=== PATIENT | female | born 1950 | race Caucasian/White ===

== ENCOUNTER 2019-02-25 16:28 | Observation (INO) ==
[2019-02-25] MEDS ORDERED: ASPIRIN PO ONE (16:46)
[2019-02-25 17:04] LABS: BASO# 0.01 X1000 (0.0-0.2); BASO% 0.2 % (0.0-0.8); EOS# 0.05 X1000 (0.0-0.7); EOS% 0.9 % (0.0-10.0); HEMATOCRIT 42.8 % (37.0-47.0); HEMOGLOBIN 13.9 g/dL (12.0-16.0); LYMPH# 2.35 X1000 (1.2-3.4); LYMPH% 41.6 % (20.5-51.1); MCH 29.1 PG (27-31); MCHC 32.5 g/dL (33-37); MCV 89.7 FL (81-99); MONO# 0.46 X1000 (0.11-0.59); MONO% 8.1 % (1.7-9.3); MPV 11.4 FL (7.4-10.4); NEUT# 2.78 X1000 (1.4-6.5); NEUT% 49.2 % (42.2-75.2); PLT 212 X1000 (130-400); RBC 4.77 XMIL (4.2-5.4); RDW 13.3 % (11.5-14.5); WBC 5.65 X1000 (4.8-10.8)
[2019-02-25 17:22] LABS: ALB/GLOB RATIO 1.5; ALBUMIN 4.5 g/dL (3.5-5.0); CALCIUM 9.2 mg/dL (8.8-10.2); POTASSIUM 3.6 mmol/L (3.5-5.1); TOTAL BILIRUBIN 0.37 mg/dL (0.20-1.00); TOTAL PROTEIN 7.6 g/dL (6.3-8.3)
--- NOTE | 2019-02-25 17:31 | PROVIDER DOCUMENTATION ---
HPI-General Adult - General Chief Complaint: Epigastric Pain Stated Complaint: CP HEART PT Time Seen by Provider: 02/25/19 17:10 Source: patient Allergies/Adverse Reactions: Patient Allergies Allergy/AdvReac Type Severity Reaction Status Date / Time esomeprazole magnesium * Allergy Intermediate DIARRHEA Verified 02/25/19 16:45 [From Nexium] omeprazole Allergy DIARRHEA Verified 02/25/19 16:45 Home Medications: Home Medication List Medication Instructions Recorded Confirmed Last Taken Type Levothyroxine [Synthroid] 75 microgm PO DAILY 02/20/12 08/11/18 01/27/18 08:00 History Rosuvastatin Calcium [Crestor] 10 mg PO HS 07/03/15 08/11/18 01/27/18 21:00 History Amlodipine [Norvasc] 5 mg PO QHS 11/23/17 08/11/18 01/28/18 06:00 History Aspirin [Aspir-Low] 81 mg PO HS 11/23/17 08/11/18 01/22/18 History Carbamazepine [Epitol] 100 mg PO HS 11/23/17 08/11/18 01/27/18 21:00 History Carvedilol [Coreg] 6.25 mg PO BID 11/23/17 08/11/18 01/28/18 06:00 History [place]-3 Fatty Acids/Fish Oil [Fish 1,200 mg PO DAILY 11/23/17 08/11/18 01/27/18 08:00 History Oil 1,000 mg Capsule] Potassium Chloride [Klor-Con 8] 1 tab PO BID 11/23/17 08/11/18 01/27/18 21:00 History Ranitidine [Zantac] 150 mg PO BID #120 tab 01/28/18 08/11/18 Unknown Rx Glipizide [Glucotrol] 5 mg PO DAILY #30 tab 08/14/18 Unknown Rx Amlodipine [Norvasc] 10 mg PO DAILY #30 tab 10/15/18 Unknown Rx - History of Present Illness -Gen Adult Nature of Presenting Problems: 68 yo female who presents with CC of chest pain and shortness of breath. The onset was this afternoon and was sudden. The description is a tightness and pressure which starts substernally and radiates to the right. The pain is not improved with rest. The patient reports that the patient is similar to her previous MS. The patient denies fever or abdominal pain. The patient reports that the pain is worse with breathing. The patient denies nausea or sweats. Review of Systems - Adult - REVIEW OF SYSTEMS - ADULT Constitutional: denies: fever Eyes: reports: no symptoms reported. denies: eye pain Ears, Nose, Mouth & Throat: reports: no symptoms reported. denies: throat pain Cardiovascular: reports: chest pain, edema Respiratory: reports: shortness of breath Gastrointestinal: reports: no symptoms reported. denies: abdominal pain, diarrhea, nausea, vomiting Genitourinary: reports: no symptoms reported. denies: flank pain Musculoskeletal: reports: back pain Integumentary: reports: no symptoms reported. denies: rash Neurological: reports: no symptoms reported. denies: headache/migraines Psychiatric: reports: no symptoms reported Endocrine: reports: no symptoms reported Hematologic/Lymphatic: reports: no symptoms reported, other (no bleeding) Allergic/Immunologic: reports: no symptoms reported Past History - Adult - PAST MEDICAL HISTORY-ADULT Review of Records: reports: Nursing Assessment Review Major Childhood Illnesses: reports: denies history Cardiovascular: reports: CAD, CHF, HTN, hyperlipidemia Respiratory: reports: asthma Gastrointestinal: reports: denies history Obstetrical/Gynecological: reports: other (cervical cancer) Genitourinary: reports: denies history Musculoskeletal: reports: denies history Neurological: reports: Seizures/Epilepsy Psychiatric: reports: denies history Endocrine/Immune: reports: Diabetes, thyroid disorder (hypo) Other Conditions: reports: denies history - PRIOR SURGERIES/PROCEDURES Surgical/Procedure History: reports: cholecystectomy, cardiac stent (2006), hysterectomy, tonsillectomy, other (breast biopsy; skin cancer removal) - IMMUNIZATION STATUS Childhood Immunizations: UTD Flu Vaccine: See Nurse Assessment - FAMILY HISTORY Family History: other (CAD in brother) - SOCIAL HISTORY Smoking: denies Substance Use: none/never Alcohol Use Frequency: never Physical Exam-General - PHYSICAL EXAM-ADULT Initial Vital Signs Reviewed: Yes - CONSTITUTIONAL General Appearance: appears well, alert, no apparent distress - EYES Eyes: negative: conjuctival exudate, photophobia, scleral icterus - HEAD, EARS, NOSE, MOUTH & THROAT HENMT: normocephalic/atraumatic, moist mucous membranes - RESPIRATORY Respiratory: lungs clear, normal breath sounds, no respiratory distress - CARDIOVASCULAR Cardiovascular: regular rate, rhythm, other (1+ RLE and 2+LLE) - GASTROINTESTINAL (ABDOMEN) Abdominal Exam: non tender, soft. negative: Grewal's sign - MUSCULOSKELETAL Back Exam: normal inspection Extremity: tenderness (mild bilateral LE tenderness) - SKIN Integumentary: normal color. negative: zoster-like rash - NEUROLOGIC Neurologic: grossly normal - PSYCHIATRIC Psych/Mental Status: normal mood/affect, normal thought content, normal thought process Progress - PLAN OF CARE/RESULTS Progress/Plan/Lab Results: Vital Signs - 8 hr 02/25/19 16:42 Temperature 98.6 F Pulse Rate 60 Respiratory Rate 20 Blood Pressure 159/67 O2 Sat by Pulse Oximetry 98 Laboratory Results - last 24 hr 02/25/19 02/25/19 02/25/19 16:41 16:41 16:41 WBC 5.65 RBC 4.77 Hgb 13.9 Hct 42.8 MCV 89.7 MCH 29.1 MCHC 32.5 L RDW Std Deviation 13.3 Plt Count 212 MPV 11.4 H Immature Gran % (Auto) 0.0 Neut % (Auto) 49.2 Lymph % (Auto) 41.6 [place] % (Auto) 8.1 Eos % (Auto) 0.9 Baso % (Auto) 0.2 Immature Gran # (Auto) 0.00 Neut # (Auto) 2.78 Lymph # (Auto) 2.35 [place] # (Auto) 0.46 Eos # (Auto) 0.05 Baso # (Auto) 0.01 Sodium 142 Potassium 3.6 Chloride 104 Carbon Dioxide 25 Anion Gap 13 BUN 20 Creatinine 1.0 H Estimated GFR/1.73 m2 55 BUN/Creatinine Ratio 20 Glucose 127 H Calculated Osmolality 287 Calcium 9.2 Total Bilirubin 0.37 AST 19 ALT 21 Alkaline Phosphatase 71 Creatine Kinase 142 Troponin T < 0.010 Total Protein 7.6 Albumin 4.5 Globulin 3.1 Albumin/Globulin Ratio 1.5 Orders Category Date Time Status Cardiac Monitoring DIRECTED Care 02/25/19 16:46 Active Oxygen Therapy- ED Nursing DIRECTED Care 02/25/19 16:46 Active Saline Loc NOW Care 02/25/19 16:46 Active CHEST-2 VIEWS [RAD] Stat Exams 02/25/19 16:46 Taken CBC WITH ELECTRONIC DIFF [HEME] Stat Lab 02/25/19 16:41 Completed CK PROFILE [SP CHEM] Stat Lab 02/25/19 16:41 Completed COMPREHENSIVE METABOLIC PANEL [CHEM] Stat Lab 02/25/19 16:41 Completed D-DIMER [COAG] Stat Lab 02/25/19 17:27 Ordered PRO B-NATRIURETIC PEPTIDE Stat Lab 02/25/19 16:41 Received PROTIME WITH INR [COAG] Stat Lab 02/25/19 16:41 Received PTT [COAG] Stat Lab 02/25/19 16:41 Received TROPONIN T Stat Lab 02/25/19 16:41 Completed Aspirin Med 02/25/19 16:46 Discontinued 325 mg PO NOW ONE CP/SOB/Palp >45 yrs of Age Stat Oth 02/25/19 16:46 Ordered EKG [EKG] Stat Ther 02/25/19 16:46 Ordered Result Diagrams: 02/25/19 16:41 02/25/19 16:41 - REASSESSMENT Reassessment #1 Status: other (Troponin negative. Given patient hx of cardiac stent and HTN, HLD, and DM, with heart score of 6, will plan on admission for observation and [facility] stress testing. Discussed with the hospitalist who has accepted the patei nt.) - EKG 1 EKG Interpretation (*Must complete 3 of following elements*): Abnormal Rate: 62 Rhythm: sinus [place]: normal QRS: normal AR Interval: normal ST Wave: non-specific ST changes Departure - Departure Date of Disposition Decision: 02/25/19 Time of Disposition Decision: 19:19 DIAGNOSIS: Chest pain Qualifiers: Chest pain type: unspecified Qualified Code(s): R07.9 - Chest pain, unspecified Disposition: ADMITTED INPATIENT 09 Certified Medical Emergency: Emergent Condition: Fair Referrals and Follow-Ups: Endy Ham MD [Primary Care Provider] - - Critical Care Note This patient required my direct & personal management of CC.: No Attestation - Physician/ LUPE Attestation Patient care was provided by Advanced Practice Provider:: No The physician spent face to face time with patient:: Yes Advanced Practice Provider documentation review:: Supervising physician onsite and consulted in the evaluation and care of this patient. The physician did have a face to face encounter with the patient. - HEART Score HEART Score: History: Moderately Suspicious HEART Score: ECG: Non-Specific Repolarization Disturbance/LBBB/PM HEART Score: Age: > or = 65 Years HEART Score: Risk Factors for Atherosclerotic Disease: > or = 3 Risk Factors or History of Atherosclerotic Disease HEART Score: Troponin: < or = Normal Limit Total HEART Score:: 6
--- NOTE | 2019-02-25 17:34 | Diag Imaging Result Doc PS360 ---
EXAM: CHEST-2 VIEWS 02/25/2019 HISTORY: CP/SOB TECHNIQUE: PA and lateral chest COMMENT: The appearance the chest has not changed significantly since 08/09/2018. IMPRESSION: No acute disease. Electronically signed by Carlos Swenson 02/25/2019 5:32 PM
[2019-02-25 17:37] LABS: INR 1.1; PROTIME 14.4 Seconds (11.0-16.0)
[2019-02-25] MEDS ORDERED: NITROGLYCERIN TOP ONE (17:37)
[2019-02-25 17:38] LABS: PTT 33.7 Seconds (22.3-41.8)
--- NOTE | 2019-02-25 22:42 | HISTORY AND PHYSICAL ---
PRIMARY CARE PROVIDER: Antionette Minor. CHIEF COMPLAINT: Chest pain. HISTORY OF PRESENTING ILLNESS: A 68-year-old female with a history of diabetes mellitus type 2, coronary disease, hypertension, hyperlipidemia, who presented to the emergency department with a 1- day history of having substernal chest pain. She described it as pressure-like and an ache. She states that she was not getting any relief. She was evaluated in the emergency department and due to her presenting symptoms, she will require admission for further management. The patient was given some nitropaste. She states that it did help relieve some of her pain. At the time of my examination, she had denied any headache, fever, chills, nausea, vomiting, diarrhea, hemoptysis, melena, or weight changes, but complained chest pain. PAST MEDICAL HISTORY: Include diabetes mellitus type 2, coronary artery disease, hypertension, hyperlipidemia, breast cancer, hypothyroidism, esophageal stricture. PAST SURGICAL HISTORY: Right breast lumpectomy, tonsillectomy, cholecystectomy, esophageal dilation, coronary stent. ALLERGIES TO: Nexium and omeprazole. CURRENT MEDICATIONS: Amlodipine 5 mg p.o. at bedtime, aspirin 81 mg p.o. at bedtime, carbamazepine 100 mg p.o. at bedtime, Coreg 6.25 mg p.o. b.i.d., glipizide 5 mg p.o. daily, levothyroxine 75 mcg p.o. daily, ranitidine 150 mg p.o. b.i.d., lovastatin 10 mg p.o. at bedtime. SOCIAL HISTORY: She is a former smoker. Denies any history of alcohol or illicit drug use. FAMILY HISTORY: No history of coronary artery disease. REVIEW OF SYSTEMS: Fourteen point review of systems is as in HPI. Other systems negative. PHYSICAL EXAMINATION: GENERAL: Cooperative, friendly female. She is resting more comfortably now. VITAL SIGNS: Temperature 98.6 degrees, pulse 62, respirations 20, blood pressure 159/67. HEENT: Atraumatic, normocephalic. Extraocular movements intact. PERRLA. NECK: No masses. CHEST: Clear to auscultation. CARDIOVASCULAR: Regular rate and rhythm. ABDOMEN: Soft. Positive bowel sounds. EXTREMITIES: No edema. NEUROLOGIC: She is awake, alert, oriented x3. : No bladder distention. SKIN: Warm. LABORATORIES AND STUDIES: WBCs 5.65, hemoglobin 13.9, hematocrit 42.8, platelets 212,000. Sodium 142, potassium 3.6, chloride 104, CO2 25, BUN is 20, creatinine 1.0, glucose 127. Chest x-ray: No acute disease. ASSESSMENT: A 68-year-old female with a history of diabetes mellitus type 2, coronary disease, hypertension, hyperlipidemia, who presented to the emergency department with a 1-day history of having chest pain. We will place patient in for observation for further evaluation management assessment. 1. Chest pain. 2. Coronary artery disease. 3. Diabetes mellitus type 2. 4. Hypertension. PLAN: 1. We will admit patient to medical floor with telemetry. 2. We will continue with cardiac workup. Check EKG, serial cardiac enzymes. Have patient continue on aspirin. The patient is already on nitropaste. We will consult cardiology for further evaluation. 3. We will monitor blood glucose. Put patient on sliding scale insulin regimen. 4. We will monitor blood pressure. Resume antihypertensive agent. 5. Put patient on deep vein thrombosis prophylaxis with Lovenox. 6. We will continue to follow and reassess. Make further recommendation based on patient's clinical course. cc: Paul Odell MD
[2019-02-25] MEDS ORDERED: TYLENOL PO PRN (23:24)
[2019-02-25] MEDS ORDERED: ZOFRAN IV PRN (23:24)
[2019-02-26] MEDS: LOVENOX SUBQ SCH ×2 (00:05→22:42)
[2019-02-26] MEDS: HUMULIN R SUBQ SCH ×4 (06:11→21:37)
[2019-02-26] MEDS: PRILOSEC PO SCH (06:12)
--- NOTE | 2019-02-26 07:09 | EKG Report ---
Test Performed on : 02/25/2019 4:32:51 PM Test Reason : CP/SOB Blood Pressure : / mmHG Vent. Rate : 062 BPM Atrial Rate : 062 BPM P-R Int : 134 ms QRS Dur : 076 ms QT Int : 400 ms P-R-T Axes : 064 051 033 degrees QTc Int : 406 ms Normal sinus rhythm. Nonspecific ST and T wave abnormality Abnormal ECG When compared with ECG of 14-OCT-2018 23:17, Nonspecific T wave abnormality now evident in Inferior leads Nonspecific T wave abnormality, worse in Lateral leads Unconfirmed Result
[2019-02-26 08:00] LABS: CHOLESTEROL 126 mg/dL (0-200); HDL 33 mg/dL (45-65); LDL 64 mg/dL; TRIGLYCERIDES 143 mg/dL (35-135); VLDL 29 mg/dL
[2019-02-26] MEDS ORDERED: ASPIRIN PO SCH (09:00)
[2019-02-26] MEDS: ASPIRIN PO SCH (10:20)
--- NOTE | 2019-02-26 10:22 | PROGRESS NOTE ---
DATE: 02/26/2019 SUBJECTIVE: Ms. Wilkins was admitted yesterday. A 68-year-old who came in; she is a patient of Antionette Minor; a 68-year-old with history of diabetes mellitus type 2, coronary artery disease, hypertension, hyperlipidemia, who presented to the emergency room with 1-day history of substernal chest pain described as pressure like ache. She states that she is not getting any relief. The pain she says in the middle of her chest and radiated to her right shoulder. Seems to be more pleuritic in nature. PAST MEDICAL HISTORY: 1. Diabetes mellitus type 2. 2. Coronary artery disease. 3. Hypertension. 4. Hyperlipidemia. 5. History of breast cancer. 6. Hypothyroidism. 7. Esophageal stricture. SURGICAL HISTORY: She has had a right breast lumpectomy, tonsillectomy, cholecystectomy, and esophageal dilatation, coronary stent. She says the pain is still present and is not as bad, radiating to the right shoulder. OBJECTIVE: Vital Signs: She remains afebrile, temperature 98.3 degrees. Pulse 49, respirations 19, blood pressure 136/64. Eyes: Pupils are equal and round. Lungs: Clear in all lung powers. Cardiovascular exam: Regular rhythm and rate without murmur or S3. Abdomen: Abdomen is soft. Skin: Skin is warm and dry. ASSESSMENT AND PLAN: 1. I cannot reproduce the tenderness or the pain by palpation on her chest, but it does seem to hurt her worse when she lays on her right shoulder by her report. Orders: She is on acetaminophen 650 mg oral every 6 hours as needed, aspirin 81 mg a day, Prilosec 20 mg a day, aspirin 325 mg a day. Cardiology has been asked to see, but this sounds like musculoskeletal pain. Her enzymes: Troponin is less than 0.01, CK 117 and 98. 2. Diabetes mellitus type 2. We will follow her sugars. 3. History of gastroesophageal reflux. She has had esophageal dilatation in the past, aware. cc: Jose Pickett MD
[2019-02-26] MEDS ORDERED: LEXISCAN ONE (11:43)
--- NOTE | 2019-02-26 14:04 | CARDIOLOGY CONSULTATION ---
DATE: 02/26/2019 REASON FOR CONSULTATION: Cardiology was consulted for chest pain. HISTORY OF PRESENT ILLNESS: Ms. Liset Wilkins is a 68-year-old lady with a history of diabetes, hypertension, and hyperlipidemia who came to the emergency room with chest discomfort. She said she had substernal chest pain with radiating to her right side of her chest, lasted for few hours before she decided to come to the emergency room. She describes the chest pain as pressure-like; however, there was a significant pleuritic component of the chest pain. Her cardiac enzymes were negative. Electrocardiogram revealed normal sinus rhythm. There was no ST-T changes to suggest ischemia. She denies any fevers or chills. There is no history of hemoptysis. She does not complain of any swelling in the in the legs or any calf muscle tenderness. She has been otherwise active. She was recently seen in our office in October. She has known coronary artery disease. REVIEW OF SYSTEM: A 14-point review of systems was done. GI: There is no history of nausea, vomiting, or diarrhea. There is no history of hematemesis or melena. Central Nervous System: No focal weakness to suggest a CVA or TIA. Genitourinary: No dysuria or hematuria. PAST MEDICAL HISTORY: 1. Coronary artery disease status post bare metal stent to the right coronary artery in 2017. Last cardiac catheterization 08/29/2017, left main was normal. LAD proximal 20% to 30%, circumflex mid 40% to 50%. RCA large patent stent with 20% in-stent restenosis. Echocardiogram in 2019 revealed preserved left ventricular systolic function. 2. Hypertension. 3. Hyperlipidemia. 4. Diabetes. 5. Esophageal spasm. 6. Hypothyroidism. 7. Seizure disorder. 8. Obesity. 9. Obstructive sleep apnea. HOME MEDICATIONS: Amlodipine 5 mg a day, aspirin 81 mg a day, carbamazepine, Coreg 6.25 b.i.d., glipizide 5 daily, levothyroxine 75, ranitidine 150 b.i.d., lovastatin 10. Social History: She is a former smoker. PHYSICAL EXAMINATION: Cardiovascular: Blood pressure was 150/67. Jugular venous pressure was normal. 1st and second heart sounds were heard. There is no S3, S4, or gallop. Respiratory: Normal air entry. There is no crepitations or rhonchi. Abdomen: Soft, nontender. There was no guarding or rigidity. Bowel sounds were heard. Central nervous system: Alert and was moving all 4 extremities Extremities: Examination of extremities revealed no pedal edema. HEENT: Atraumatic, normocephalic. Pupils are equal and reacting to light. ASSESSMENT AND PLAN: Ms. Liset Wilkins is a 68-year-old lady with a history of coronary artery disease, with stent placement in 2007, with a bare metal stent to the right coronary artery. Underwent a cardiac catheterization in 2018, which revealed minimal coronary artery disease with patent stent, has history of hypertension, diabetes, comes with complaints of chest discomfort retrosternal with radiation to the right side. She has undergone a stress test and echocardiogram. She is going to have the stress images performed shortly. 1. Of note is that her symptoms when she had the pains were mainly right-sided radiation with a pleuritic component. Given this, we will make sure there is no pulmonary embolism, we will set her up to undergo a CT angiogram of her lungs to rule out a PE as well. Cardiac enzymes were negative. She had a stress test done, images are pending. 2. Hypertension. Continue with the current medications. 1. She is hypothyroid, is on levothyroxine, I have not made any changes. 2. Hyperlipidemia. She is on Crestor 10, I have not made any changes to her medication. Thank you for the consult. We will follow hospital course. cc: Dick Hill MD
--- NOTE | 2019-02-26 15:37 | Diag Imaging Result Document ---
PROCEDURE NAME: MYOCARDIAL PERF SCAN, STR/REST - 02/26/2019 INDICATION: Chest pain. PROCEDURES PERFORMED: 1. Lexiscan stress. 2. One-day stress rest myocardial perfusion imaging. PROCEDURE FINDINGS: LEXISCAN STRESS RESULTS: 1. Baseline EKG shows sinus bradycardia with mild sagging ST segments. 2. Lexiscan stress did not demonstrate any clear evidence of ischemic related EKG changes or significant arrhythmias. PERFUSION IMAGING RESULTS: 1. No evidence of abnormal extracardiac uptake. 2. TID ratio is 1.13. 3. Perfusion imaging does not demonstrate any evidence of ischemic related EKG changes or significant arrhythmias. 4. Normal ejection fraction of 73%. The end-diastolic volume is 70, end systolic volumes 19. Normal wall motion is noted. cc: MD Nina Wade PA
--- NOTE | 2019-02-26 15:44 | Diag Imaging Result Doc PS360 ---
EXAM: CT ANGIOGRM PULMONARY ARTERIES HISTORY: chest pain, dypsnea TECHNIQUE: CT chest with intravenous contrast. Pulmonary arterial protocol with MIP images. COMPARISON: 12/08/2017 FINDINGS: Normal opacification of the pulmonary arteries and their major branches. No aortic aneurysm or dissection. Prominent atherosclerosis. Mild cardiomegaly. No enlarged lymph nodes. Mild to moderate emphysema. No consolidation. Scarring inferiorly in the right middle lobe and lingular segment of the left upper lobe. IMPRESSION: 1.No pulmonary emboli 2.Emphysema 3.Basilar scarring 4.Mild cardiomegaly This exam was performed using automated exposure control, adjustment of mA or kV according to patient size, and/or use of iterative reconstruction technique. Electronically signed by Rolando Dinh 02/26/2019 3:41 PM
[2019-02-27] MEDS: HUMULIN R SUBQ SCH (06:21)
[2019-02-27] MEDS: PRILOSEC PO SCH ×2 (06:26→06:27)
[2019-02-27 07:59] VITALS: BP 136/61
[2019-02-27] MEDS: ASPIRIN PO SCH (08:42)
--- NOTE | 2019-02-27 11:01 | DISCHARGE SUMMARY ---
ADMISSION DATE: 02/25/2019 DISCHARGE DATE: 02/27/2019 HISTORY OF PRESENT ILLNESS: She is a patient of Antionette Minor. This is a 68-year-old with history of diabetes mellitus type 2, coronary artery disease, hypertension, hyperlipidemia, who presented to the emergency room after having chest pain described as pressure-like aching feeling. States that she did not get any relief and it was persistent. She was evaluated in the emergency department and felt she should be admitted for rule out. PAST MEDICAL HISTORY: 1. Diabetes mellitus type 2. 2. Coronary artery disease. 3. Hypertension. 4. Hyperlipidemia. 5. Breast cancer. 6. Hypothyroidism. 7. Esophageal stricture. PAST SURGICAL HISTORY: 1. Right breast lumpectomy. 2. Tonsillectomy. 3. Cholecystectomy. 4. Esophageal dilatation. 5. Coronary stent placement. HOSPITAL COURSE: Admitted for chest pain which was atypical features, negative cardiac enzymes, negative EKG, no suspicious ST-segment changes. She had underwent a [employer] cardiac GXT electrically and radiographically with no sign of ischemia. Ejection fraction was above 70%. She did get a pulmonary angiogram. There was no pulmonary emboli. There was mild emphysema, basilar scarring, mild cardiomegaly. The patient's chest pain resolved, and felt she could go home on 02/27/2019. DISCHARGE MEDICINE: 1. Aspirin 81 mg a day. 2. She was taking Norvasc 5 mg at bedtime, and I think 10 mg in the morning. 3. Aspirin 81 mg a day. 4. Carbamazepine 100 mg at bedtime. 5. Coreg 6.25 mg b.i.d. 6. Glipizide 5 mg a day, 7. Synthroid 75 mcg a day. 8. Ragan-3 fatty acids 1000 mg capsule once a day. 9. Zantac 150 mg b.i.d. 10. Crestor 10 mg at bedtime. DISCHARGE DISPOSITION: We will discharge her home to follow up with Antionette Minor. cc: Jose Pikcett MD
== END 2019-02-27 11:07 | disposition home or self-care (01) ==
LOC: ED 16:28 → SUATTDRO 22:36 → INTOOBSV 22:36 → 3N 22:36
PROVIDERS: ATTEND Emergency Medicine